=== PATIENT | female | born 1965 | race Two or more races ===

== ENCOUNTER 2019-08-30 21:09 | Emergency (ER) | payer OTHER ==
[~2019-08-30] VITALS: Ht 157.5 cm; Wt 65.0 kg
[2019-08-31] MEDS ORDERED: DEXAMETHASONE 4 MG TABLET PO ONE (01:45)
[2019-08-31] MEDS ORDERED: MAALOX/LIDOCAINE/NYSTATIN SUSP 5 ML ORAL.SYG MM ONE (02:00)
[2019-08-31] MEDS ORDERED: ACETAMINOPHEN 325 MG TABLET PO ONE (02:10)
[2019-08-31] MEDS ORDERED: ACETAMINOPHEN 500 MG TABLET PO ONE (02:15)
[2019-08-31 02:17] LABS: RAPID GROUP A STREP NEGATIVE (NEGATIVE)
[2019-08-31 02:23] LABS: INFLUENZA TYPE A NEGATIVE FOR TYPE A (NEGATIVE); INFLUENZA TYPE B NEGATIVE FOR TYPE B (NEGATIVE)
[2019-08-31 02:40] VITALS: BP 141/76
== END 2019-08-31 02:47 | disposition home or self-care (01) ==
LOC: EMS 21:10
DX: J02.9 Acute pharyngitis, unspecified (principal)
CPT/HCPCS: 87430; 87804; 99284; J8540